=== PATIENT | male | born 2000 | race Caucasian/White ===

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

== ENCOUNTER 2020-08-20 10:10 | Emergency (ER) | payer OTHER, SELFPAY ==
--- NOTE | ~2020-08-20 | XR_ITS ---
EXAMINATION: XR wrist RT min 3V INDICATION: Right wrist pain TECHNIQUE: Four views of the right wrist are obtained. COMPARISON: None available FINDINGS: There is no fracture, dislocation, or subluxation. The bones, soft tissues, and joint space s are normal. IMPRESSION: 1. No acute osseous abnormality. Reviewed, dictated and finalized at location A. [facility]
--- NOTE | 2020-08-20 10:15 | ED.UPPEXIN ---
HPI - Extremity Injury (Upper) General Chief Complaint: Extremity Injury, Upper Stated Complaint: right wrist injury Time Seen by Provider: 08/20/20 10:15 Source: patient and RN notes reviewed History of Present Illness HPI narrative: Patient is a 20-year-old male who presents the urgent care with complaints of right wrist injury. Patient states that he fell on the asphalt 2 days ago catching himself with his right wrist/hand. Patient states that he has taken ibuprofen and has been using Coban to wrap the wrist. No other acute complaints or injuries from the fall. No acute distress noted. Patient aware of the plan of care. Some parts of this dictation were generated by voice recognition software and may contain typographical and/or grammatical inaccuracies. Related Data Home Medications Medication Instructions Recorded Confirmed dextroamphetamine-amphetamine 30 mg PO DAILY 05/28/19 05/28/19 [Adderall] Allergies Allergy/AdvReac Type Severity Reaction Status Date / Time albuterol AdvReac Intermediate Other Verified 09/29/19 09:48 Review of Systems Review of Systems: Narrative: CONSTITUTIONAL: Denies fever, chills, or sweats. EYES: Denies visual changes, redness, or discharge. ENT: Denies rhinorrhea, congestion, sore throat, or otalgia. CARDIOVASCULAR: Denies chest pain, palpitations, or edema. RESPIRATORY: Denies cough or dyspnea. GASTROINTESTINAL: Denies abdominal pain, nausea, vomiting, or diarrhea. GENITOURINARY: Denies dysuria or hematuria. SKIN: Denies rash or itching. MUSCULOSKELETAL: Reports of right wrist injury/pain due to fall NEUROLOGIC: Denies headache, numbness, or weakness. All other systems reviewed are negative, except as documented in HPI. [facility] Social History Social History Gender identity (if verbalized by the patient): Male Comments At the time of my signature, I reviewed and agree with the nursing past medical, surgical, social, and family history. There is no relevant family history pertinent to the patient complaint. Exam Narrative: Exam Narrative: GENERAL: This is a well-nourished, well-developed patient, in no apparent distress. HEAD: normocephalic, atraumatic. EYES: PERRL. Sclera clear/white. Vision is grossly intact. EARS: External ears normal NOSE: External nose normal with no obvious nasal discharge, nares without redness, no rhinorrhea. THROAT: Mucous membranes moist NECK: Neck supple SKIN: 2 cm circular open skin tear noted to the palmar aspect of the right hand NEURO: awake, alert, and oriented to person, place and time. There were no obvious focal neurologic abnormalities. EXTREMITIES: No obvious deformity, edema, ecchymosis, erythema noted to the right wrist. Range of motion within normal limits to right upper extremity. Strong right radial pulse. Capillary refill less than 2 seconds. Course Vital Signs Vital signs: Vital Signs Temperature 98.6 F 08/20/20 10:19 Pulse Rate 103 H 08/20/20 10:19 Respiratory Rate 18 08/20/20 10:19 Blood Pressure 137/78 08/20/20 10:19 Pulse Oximetry 100 08/20/20 10:19 Temperature 98.6 F 08/20/20 10:21 Pulse Rate 103 H 08/20/20 10:21 Respiratory Rate 18 08/20/20 10:21 Blood Pressure 137/78 08/20/20 10:21 Pulse Oximetry 100 08/20/20 10:21 Reviewed MDM - Extremity Injury (Upper) MDM Narrative Medical decision making narrative: Reviewed x-ray results with the patient. He is aware that x-ray was negative for any fracture or deformity. Advised the patient to wear the Isidro wrap as directed for comfort and pain. Avoid any strenuous activity such as pushing, pulling until activity as tolerated as normal. May use Tylenol/ibuprofen as needed for pain. Keep the wound clean and free of debris using plain Dial soap and water. May apply Neosporin and a bandage prior to Isidro wrap application. Follow-up with your PCP within 2 to 5 days or for worsening symptoms or failure to improve. Differential Diagnosis Differen
[2020-08-20 10:19] VITALS: BP 137/78; PULSE 103; RESP 18; TEMP 37; O2SAT 100
[2020-08-20 10:21] VITALS: BP 137/78; PULSE 103; RESP 18; TEMP 37; O2SAT 100
== END 2020-08-20 10:41 | disposition home or self-care (01) ==
PROVIDERS: Emergency Provider Nurse Practitioner Family; PCP Nurse Practitioner Family
DX: S63.501A Unspecified sprain of right wrist, initial encounter (principal); S66.911A Strain of unspecified muscle, fascia and tendon at wrist and hand level, right hand, initial encounter; W19.XXXA Unspecified fall, initial encounter; F90.9 Attention-deficit hyperactivity disorder, unspecified type
CPT/HCPCS: 73110; 99213; G0463

== ENCOUNTER 2021-10-30 13:33 | Emergency (ER) | payer OTHER, SELFPAY ==
[2021-10-30 13:40] VITALS: BP 138/68; PULSE 100; RESP 18; TEMP 37; O2SAT 100
--- NOTE | 2021-10-30 13:49 | ED.URI ---
HPI - URI/Sore Throat General Chief Complaint: Upper Respiratory Infection Stated Complaint: Sore Throat Time Seen by Provider: 10/30/21 13:35 Source: patient and RN notes reviewed History of Present Illness HPI Narrative: Patient is a 21-year-old male who presents the urgent care with complaints of sore throat and headache for the last 2 days. Patient denies of any fevers, nausea or vomiting. Denies of any ill exposures. Patient has been taking ibuprofen. No other acute complaints. No acute distress noted. Patient aware of the plan of care. Some parts of this dictation were generated by voice recognition software and may contain typographical and/or grammatical inaccuracies. Related Data Home Medications Medication Instructions Recorded Confirmed dextroamphetamine-amphetamine 30 mg PO DAILY 05/28/19 08/20/20 [Adderall] Allergies Allergy/AdvReac Type Severity Reaction Status Date / Time albuterol AdvReac Intermediate Other Verified 10/30/21 13:53 Review of Systems Review of Systems: CONSTITUTIONAL: Denies fever, chills, or sweats. EYES: Denies visual changes, redness, or discharge. ENT: Denies rhinorrhea, congestion, otalgia. Reports of sore throat CARDIOVASCULAR: Denies chest pain, palpitations, or edema. RESPIRATORY: Denies cough or dyspnea. GASTROINTESTINAL: Denies abdominal pain, nausea, vomiting, or diarrhea. GENITOURINARY: Denies dysuria or hematuria. SKIN: Denies rash or itching. MUSCULOSKELETAL: Denies back pain, joint pain, or myalgia. NEUROLOGIC: Reports of headache All other systems reviewed are negative, except as documented in HPI. PMFSH Social History Social History Gender identity (if verbalized by the patient): Male Comments At the time of my signature, I reviewed and agree with the nursing past medical, surgical, social, and family history. There is no relevant family history pertinent to the patient complaint. Exam Narrative: GENERAL: This is a well-nourished, well-developed patient, in no apparent distress. HEAD: normocephalic, atraumatic. EYES: PERRL. Sclera clear/white. Vision is grossly intact. EARS: External ears normal, auditory canals clear and without drainage, TMs normal without perforation. Hearing grossly intact. NOSE: External nose normal with no obvious nasal discharge, nares without redness, no rhinorrhea. THROAT: Mucous membranes moist, posterior pharynx clear. Mild postnasal drainage NECK: Neck supple CARDIOVASCULAR: Regular rate and rhythm without murmurs, gallops, or rubs. RESPIRATORY: Clear to auscultation. Breath sounds equal bilaterally. No wheezes, rales, or rhonchi. SKIN: warm, intact with no suspicious lesions or rash, good texture and turgor. NEURO: awake, alert, and oriented to person, place and time. There were no obvious focal neurologic abnormalities. EXTREMITIES: No clubbing, cyanosis, or edema. Course Course Level of Care: Express Care Visit Vital Signs Vital signs: Vital Signs Temperature 98.6 F 10/30/21 13:40 Pulse Rate 100 10/30/21 13:40 Respiratory Rate 18 10/30/21 13:40 Blood Pressure 138/68 10/30/21 13:40 Pulse Oximetry 100 10/30/21 13:40 Temperature 98.6 F 10/30/21 13:40 Pulse Rate 100 10/30/21 13:40 Respiratory Rate 18 10/30/21 13:40 Blood Pressure 138/68 10/30/21 13:40 Pulse Oximetry 100 10/30/21 13:40 Reviewed MDM - URI/Sore Throat MDM Narrative Medical decision making narrative: Reviewed lab results with the patient. He is aware that strep swab was negative. Educated patient on culture and we will call within 72 hours if culture is positive and antibiotics are necessary. Patient is aware that symptoms are consistent with a common cold and advised him to use a daily allergy medication such as Benadryl/Zyrtec/Claritin in conjunction with Flonase nasal spray and Tylenol/ibuprofen as needed for discomfort. Follow-up with your PCP within 2 to 5 days or for worsening symptoms or failure to improve.
== END 2021-10-30 14:05 | disposition home or self-care (01) ==
PROVIDERS: Emergency Provider Nurse Practitioner Family; PCP Nurse Practitioner Family
DX: J02.9 Acute pharyngitis, unspecified (principal)
CPT/HCPCS: 87081; 87880; 99213; G0463

== ENCOUNTER 2022-05-30 08:07 | Emergency (ER) | payer OTHER, SELFPAY ==
--- NOTE | 2022-05-30 08:10 | ED.URI ---
HPI - URI/Sore Throat General Chief Complaint: Upper Respiratory Infection Stated Complaint: Headache/ Body Aches/Cough Time Seen by Provider: 05/30/22 08:10 Source: patient and RN notes reviewed History of Present Illness HPI Narrative: patient is a 21-year-old male who presents to urgent care with complaints of headache, body aches, cough. Patient states that started at 8:00 p.m. last night and he believes that he has had a fever. Patient denies any nausea, vomiting or abdominal pain. Patient denies any ill exposures. Denies of a sore throat. No other acute complaints. No acute distress noted. Patient aware of the plan of care. Some parts of this dictation were generated by voice recognition software and may contain typographical and/or grammatical inaccuracies. Related Data Home Medications Medication Instructions Recorded Confirmed dextroamphetamine-amphetamine 30 30 mg PO DAILY 05/28/19 10/30/21 mg tablet (Adderall) Allergies Allergy/AdvReac Type Severity Reaction Status Date / Time albuterol AdvReac Intermediate Other Verified 05/30/22 08:23 Review of Systems Review of Systems: CONSTITUTIONAL: reports chills EYES: Denies visual changes, redness, or discharge. ENT: Denies rhinorrhea, congestion, sore throat, or otalgia. CARDIOVASCULAR: Denies chest pain, palpitations, or edema. RESPIRATORY: reports of cough without dyspnea GASTROINTESTINAL: Denies abdominal pain, nausea, vomiting, or diarrhea. GENITOURINARY: Denies dysuria or hematuria. SKIN: Denies rash or itching. MUSCULOSKELETAL: Denies back pain, joint pain. Reports body aches NEUROLOGIC: Reports of headache All other systems reviewed are negative, except as documented in HPI. PMFSH Social History Social History Gender identity (if verbalized by the patient): Male Comments At the time of my signature, I reviewed and agree with the nursing past medical, surgical, social, and family history. There is no relevant family history pertinent to the patient complaint. Exam Narrative: GENERAL: This is a well-nourished, well-developed patient. Appears fatigued HEAD: normocephalic, atraumatic. EYES: PERRL. Sclera clear/white. Vision is grossly intact. EARS: External ears normal, auditory canals clear and without drainage, TMs normal without perforation. Hearing grossly intact. NOSE: External nose normal with no obvious nasal discharge. Bilateral erythema nares with clear rhinorrhea THROAT: Mucous membranes moist, posterior pharynx clear. moderate postnasal drainage NECK: Neck supple CARDIOVASCULAR: Regular rate and rhythm without murmurs, gallops, or rubs. RESPIRATORY: Clear to auscultation. Breath sounds equal bilaterally. No wheezes, rales, or rhonchi. SKIN: warm, intact with no suspicious lesions or rash, good texture and turgor. NEURO: awake, alert, and oriented to person, place and time. There were no obvious focal neurologic abnormalities. EXTREMITIES: No clubbing, cyanosis, or edema. Course Course Level of Care: Express Care Visit Vital Signs Vital signs: Vital Signs Temperature 101.2 F H 05/30/22 08:16 Pulse Rate 116 H 05/30/22 08:16 Respiratory Rate 16 05/30/22 08:16 Blood Pressure 128/69 05/30/22 08:16 Pulse Oximetry 100 05/30/22 08:16 Oxygen Delivery Room Air 05/30/22 08:16 Temperature 101.2 F H 05/30/22 08:16 Pulse Rate 116 H 05/30/22 08:16 Respiratory Rate 16 05/30/22 08:16 Blood Pressure 128/69 05/30/22 08:16 Pulse Oximetry 100 05/30/22 08:16 Oxygen Delivery Room Air 05/30/22 08:16 reviewed MDM - URI/Sore Throat MDM Narrative Medical decision making narrative: advised patient to increase his water intake and use Tylenol/ ibuprofen as needed for fever and body aches. Use a humidifier at night. Use a daily antihistamine such as Benadryl/Claritin/ Zyrtec for upper respiratory relief. If he develops any increase in symptoms associated with persistent high fevers, shortness o
[2022-05-30 08:16] VITALS: BP 128/69; PULSE 116; RESP 16; TEMP 38.4; O2SAT 100
== END 2022-05-30 08:34 | disposition home or self-care (01) ==
PROVIDERS: Emergency Provider Nurse Practitioner Family; PCP Nurse Practitioner Family
DX: J11.1 Influenza due to unidentified influenza virus with other respiratory manifestations (principal)
CPT/HCPCS: 99211; G0463

== ENCOUNTER 2022-07-31 08:49 | Emergency (ER) | payer OTHER, SELFPAY ==
[2022-07-31 09:09] VITALS: BP 111/71; PULSE 77; RESP 20; TEMP 36.9; O2SAT 99
--- NOTE | 2022-07-31 09:54 | ED.URI ---
HPI - URI/Sore Throat General Chief Complaint: Upper Respiratory Infection Stated Complaint: cold flu Source: patient and RN notes reviewed Mode of arrival: ambulatory Limitations: no limitations History of Present Illness HPI Narrative: 21-year-old male presented for complaint of a cough for 3 days. Endorses hacking yellow stuff. Also with yellow sinus drainage and pressure. Denies shortness of breath, wheezing, her recently fevers or chills. He denies sick contacts. He is taking Mucinex but states it makes the cough worse. MD elicited complaint: cough Related Data Home Medications Medication Instructions Recorded Confirmed dextroamphetamine-amphetamine 30 30 mg PO DAILY 05/28/19 05/30/22 mg tablet (Adderall) Allergies Allergy/AdvReac Type Severity Reaction Status Date / Time albuterol AdvReac Intermediate Other Verified 05/30/22 08:23 Review of Systems Review of Systems: CONSTITUTIONAL: Denies malaise, chills, sweats, fever EYES: Denies visual changes, redness, or discharge ENT: Reports rhinorrhea, congestion, sinus pain, denies otalgia, sore throat CARDIOVASCULAR: Denies chest pain, palpitations, edema RESPIRATORY: Reports cough, post nasal drainage. Denies dyspnea GASTROINTESTINAL: Denies abdominal pain, nausea, vomiting, diarrhea SKIN: Denies rash or itching PMFSH Social History Social History Gender identity (if verbalized by the patient): Male Exam Narrative: GENERAL: well-appearing EYES: conjunctivae clear ENT: Mucous membranes moist. TM pearly connelly with dull light reflex bilaterally; no tragal tenderness. Oropharynx erythematous without lesions or exudate, no drooling, no hoarseness, no trismus, uvula midline. CHEST: Clear to auscultation, breath sounds equal. No wheezing, rhonchi, rales, or stridor. No respiratory distress, speaks in full sentences. HEART: Regular rate and rhythm. SKIN: Warm, dry, no rash. NEURO: Alert and oriented x3. Course Course Emergency Course: Patient is aware of diagnosis, understands and agrees to treatment plan. Anticipatory guidance given. Patient agrees to follow-up as directed and is aware of reasons to seek care at the emergency department. Portions of this record may have been created with voice recognition software Level of Care: Express Care Visit Vital Signs Vital signs: Vital Signs Temperature 98.5 F 07/31/22 09:09 Pulse Rate 77 07/31/22 09:09 Respiratory Rate 20 07/31/22 09:09 Blood Pressure 111/71 07/31/22 09:09 Pulse Oximetry 99 07/31/22 09:09 Oxygen Delivery Room Air 07/31/22 09:09 Temperature 98.5 F 07/31/22 09:09 Pulse Rate 77 07/31/22 09:09 Respiratory Rate 20 07/31/22 09:09 Blood Pressure 111/71 07/31/22 09:09 Pulse Oximetry 99 07/31/22 09:09 Oxygen Delivery Room Air 07/31/22 09:09 reviewed MDM - URI/Sore Throat MDM Narrative Medical decision making narrative: Result negative COVID and flu reviewed with patient. Advised supportive measures and signs/symptoms to go to the ER. Pt is appropriate for outpt treatment and f/u. Differential Diagnosis Differential diagnosis: Likely upper respiratory infection, sinusitis, viral infection and influenza Lab Data Labs: Influenza A Screen Negative Reference Range: Negative Influenza B Screen Negative Reference Range: Negative Discharge Plan Discharge Clinical Impression: Viral infection Patient Disposition: Home, Self-Care Condition: Stable Instructions: Viral Syndrome (ED) Additional Instructions: COVID and flu test negative today. Recommend retesting for COVID at home in 1-2 days. Recommend Flonase spray and Zyrtec (or Claritin/Capri) For sinus congestion over the counter Cough syrup may cause drowsiness; avoid driving or take i
== END 2022-07-31 09:58 | disposition home or self-care (01) ==
PROVIDERS: Emergency Provider Nurse Practitioner Family; PCP Nurse Practitioner Family
DX: B34.9 Viral infection, unspecified (principal); Z20.822 Contact with and (suspected) exposure to COVID-19
CPT/HCPCS: 87426; 87804; 99213; C9803; G0463